=== PATIENT | male | born 1965 | race Caucasian/White ===

== ENCOUNTER 2023-11-30 17:39 | Outpatient (OUT) | payer OTHER, SELFPAY ==
--- NOTE | 2023-11-30 | XR_ITS ---
The [address] [address] Patient Name: KESHIA LIN MRN: [id number] date: 1965 Sex: M Assigned Patient Location: [facility] Current Patient Location: Accession/Order Number: [id number] Exam Date: 11/30/2023 18:00 Report Date: 12/01/2023 07:42 At the request of: DONALD ORTEGA Procedure: XR lumbar spine min 4V EXAMINATION: XR lumbar spine min 4V HISTORY: M54.50 COMPARISON: No relevant comparison available. FINDINGS: BONES: Normal. No significant spondylosis, scoliosis, fracture, or visible bony lesion. DISC SPACES: Normal. No significant disc height narrowing, subluxation, or endplate abnormality. PARASPINOUS: Negative. No paraspinous abnormality is seen. OTHER: Negative. XR/XR lumbar spine min 4V IMPRESSION: No acute radiographic abnormality Electronically authenticated by: TREMAYNE ADLER Date: 12/01/2023 07:42
== END 2023-11-30 17:40 | disposition home or self-care (01) ==
LOC: RAD 17:44
PROVIDERS: PCP Nurse Practitioner Family; Visit Provider Nurse Practitioner Family
DX: M54.50 Low back pain, unspecified (principal)
CPT/HCPCS: 72110

== ENCOUNTER 2024-10-14 18:56 | Emergency (ER) | payer OTHER, SELFPAY ==
--- OUTSIDE RECORDS SUMMARY | 2024-10-14 19:07 | XMS_ITS | CCD ---
Author Organization [facility] Care Team Providers Care Marriage And Family Therapist Name Role Phone DR BHAVESH PEREZ Admitting Unavailable SHERYL Motley, DR OSPINA Attending Unavailable DR STEPHEN BATISTA Primary Care Unavailable DR BHAVESH PEREZ Consulting Unavailable HODA, NEVILLE Consulting Unavailable Stephen Batista DO Primary Care Provider [phone] Temitope Cobb APRN Attending Provider Medications Current Medications Medication Drug Class(es) Dates Sig (Normalized) Sig (Original) metFORMIN hydrochloride 500 mg oral tablet (1 source) Biguanide Start: 10-14-2024 take 1 tablet by mouth once daily Metformin 500 mg tablet Active 500 MG PO Daily October 14, 2024 12:00am Complies with drug therapy Semaglutide (1 source) Start: 10-14-2024 Semaglutide (Ozempic) 0.25 mg or 0.5 mg (2 mg/3 mL) pen injector Active MG SUBCUT October 14, 2024 12:00am Complies with drug therapy Completed/Discontinued Medications Medication Drug Class(es) Dates Sig (Normalized) Sig (Original) aspirin 325 mg oral tablet (1 source) Platelet Aggregation Inhibitor, Nonsteroidal Anti-inflammatory Drug Start: 12-23-2017 End: 10-14-2024 take 1 tablet by mouth once daily Aspirin 325 mg Tablet Discontinued 325 MG PO Daily December 23, 2017 1:00am October 14, 2024 6:12pm ibuprofen 800 mg oral tablet (1 source) Nonsteroidal Anti-inflammatory Drug Start: 12-23-2017 End: 10-14-2024 take 1 tablet by mouth three times daily as needed for pain Ibuprofen 800 mg Tablet Discontinued 800 MG PO Three times daily as needed for Pain December 23, 2017 1:00am October 14, 2024 6:12pm nabumetone 500 mg oral tablet (1 source) Nonsteroidal Anti-inflammatory Drug Start: 10-14-2024 End: 10-14-2024 Nabumetone 500 mg tablet Discontinued MG PO October 14, 2024 12:00am October 14, 2024 6:19pm Problems Problem Classification Problem Date Documented Da te Episodic/Chronic Diabetes mellitus without complication (1 source) Type 2 diabetes mellitus without complications; Translations: [TYPE 2 DM WITHOUT COMPLICATIONS] Onset: 05-27-2022 Chronic Gastrointestinal hemorrhage (1 source) Hematochezia; Translations: [Melena] 01-28-2023 Episodic Comment on above: Problem List clean-u p per request of Phys. EHR Cmte Open wounds of extremities (2 sources) Dog bite of hand; Translations: [Open bite of unspecified hand, initial encounter] 10-14-2024 Episodic Other aftercare (1 source) custodial (current) use of oral hypoglycemic drugs; Translations: [ON SITE SERVICES SPECIALIST USE ORAL HYPOGLYCEMIC DX] Onset: 05-27-2022 Episodic Other aftercare (1 source) custodial (current) use of aspirin; Translations: [[facility] CURRENT USE OF ASPIRIN] Onset: 05-27-2022 Episodic Other gastrointestinal disorders (1 source) Constipation; Translations: [Constipation, unspecified] 01-28-2023 Episodic Comment on above: Problem List clean-u p per request of Phys. EHR Cmte Other lower respiratory disease (4 sources) Shortness of breath; Translations: [SHORTNESS OF BREATH] Onset: 05-23-2022 Episodic Other screening for suspected conditions (not mental disorders or infectious disease) (1 source) Computed tomography result abnormal; Translations: [Abnormal findings on diagnostic imaging of other specified body structures] 01-28-2023 Chronic Comment on above: Problem List clean-u p per request of Phys. EHR Cmte Screening and history of mental health and substance abuse codes (1 source) Personal history of nicotine dependence; Translations: [PERSONAL HISTORY OF NICOTINE DEPEND] Onset: 05-27-2022 Episodic Viral infection (1 source) COVID-19; Translations: [COVID-19] Onset: 05-27-2022 Results Test Name Value Interpretation Reference Range Facil ity CTA CHEST WO W CONon 023 CTA CHEST WO W CON EXAMINATION: CTA TAURUS ST WO W CON HISTORY: SHORTNESS OF BREATH COMPARISON: CT abdomen 12/10/2017 TECHNIQUE: Thin section transaxial slices were acquired through the chest with intravenous contrast per PE protocol. Coronal and sagittal reconstructed images were reviewed. FINDINGS: PULMONARY ARTERIES: There is good opacification of the pulmonary vasculature. No pulmonary arterial filling defects are present. LUNGS/AIRWAYS: There are multifocal patchy areas of consolidation in right lower and middle lung. Additionally, there are groundglass nodular densities along the bronchovascular distribution in bilateral lower lobes, right more than left. The central airways are patent. PLEURAL CAVITY: No pleural effusion or pneumothorax. HEART/PERICARDIUM: The heart is normal in size. No pericardial effusion. MEDIASTINAL/HILAR LYMPH NODES: No pathologically enlarged lymph nodes. CHEST WALL/AXILLA/LOWER NECK: Normal. VISUALIZED UPPER ABDOMEN: No acute abnormality. There is a 4 cm fluid attenuation lesion in the right liver, unchanged since 2018, likely a cyst BONES: No acute process.. There are marked degenerative changes in the lower thoracic spine with large anterior bridging osteophytes and anterior wedging. IMPRESSION: 1. No evidence of pulmonary embolism. 2. Multifocal patchy areas of consolidation in right middle, lower lobes and additional groundglass nodular densities along the bronchovascular distribution in bilateral lower lobes, likely represent pneumonia. Electronically authenticated by: NEVILLE UNLU Date: 2022-05-23 22:03 Normal [facility] CBC AUTO DIFFon 05-23-2022 BASO # 0.0 103/ul Normal 0.0-0.1 [facility] Comment on above: Performed By: #### C BC #### [facility] [address] [address] [address] Hermes Rios Basophils/100 WBC (Bld) 0.3 % Normal 0.2-2.0 [facility] Comment on above: Performed By: #### C BC #### [facility] [address] [address] [address] Hermes Rios EO # 0.1 103/ul Normal 0.0-0.7 [facility] Comment on above: Performed By: #### C BC #### [facility] [address] [address] [address] Hermes Rios Eosinophils/100 WBC (Bld) 1.7 % Normal 0.9-7.0 [facility] Comment on above: Performed By: #### C BC #### [facility] [address] [place] [address] Dr. Hermes Rios Erythrocyte distribution width (RBC) [Ratio] 12.1 % Normal 11.0-15.0 [facility] Comment on above: Performed By: #### C BC #### [facility] [address] [place] [address] Dr. Hermes Rios Hematocrit (Bld) [Volume fraction] 42.3 % Normal 42.0-54.0 [facility] Comment on above: Performed By: #### C BC #### [facility] [address] [place] [address] Dr. Hermes Rios Hemoglobin (Bld) [Mass/Vol] 14.4 g/dL Normal 14.0-18.0 [facility] Comment on above: Performed By: #### C BC #### [facility] [address] [place] [address] Dr. Hermes Rios IG # 0.02 10e3/ul Normal 0.00-0.03 [facility] Comment on above: Performed By: #### C BC #### [facility] [address] [place] [address] Dr. Hermes Rios IG % 0.3 % Normal 0.0-0.5 [facility] Comment on above: Performed By: #### C BC #### [facility] [address] [place] [address] Dr. Hermes Rios LYMPH # 1.2 103/ul Normal 1.2-3.8 [facility] Comment on above: Performed By: #### C BC #### [facility] [address] [place] [address] Dr. Hermes Rios Lymphocytes/100 WBC (Bld) 15.6 % Critically low 20.5-60.0 [facility] Comment on above: Performed By: #### C BC #### [facility] [address] [place] [address] Dr. Hermes Rios MANUAL DIFF REQ NO Normal [facility] Comment on above: Performed By: #### C BC #### [facility] [address] [place] [address] Dr. Hermes Rios MCH (RBC) [Entitic mass] 29.8 pg Normal 25.9-34.0 [facility] Comment on above: Performed By: #### C BC #### [facility] [address] [place] [address] Dr. Hermes Rios MCHC (RBC) [Mass/Vol] 34.0 g/dL Normal 29.9-35.2 [facility] Comment on above: Performed By: #### C BC #### [facility] [address] [address] [address] Hermes Rios MCV (RBC) [Entitic vol] 87.4 fL Normal 80.0-94.0 [facility] Comment on above: Performed By: #### C BC #### [facility] [address] [place] [address] Dr. Hermes Rios MONO # 0.5 103/ul Normal 0.3-0.8 [facility] Comment on above: Performed By: #### C BC #### [facility] [address] [place] [address] Dr. Hermes Rios Monocytes/100 WBC (Bld) 6.6 % Normal 1.7-12.0 [facility] Comment on above: Performed By: #### C BC #### [facility] [address] [place] [address] Dr. Hermes Rios NEUT # 5.9 103/ul Normal 1.4-6.5 [facility] Comment on above: Performed By: #### C BC #### [facility] [address] [place] [address] Dr. Hermes Rios Neutrophils/100 WBC (Bld) 75.5 % Critically high 43.0-75.0 [facility] Comment on above: Performed By: #### C BC #### [facility] [address] [place] [address] Dr. Hermes Rios Platelet mean volume (Bld) [Entitic vol] 9.0 fL Critically low 9.5-13.5 [facility] Comment on above: Performed By: #### C BC #### [facility] [address] [place] [address] Dr. Hermes Rios PLT 249 103/ul Normal 150-450 [facility] Comment on above: Performed By: #### C BC #### [facility] [address] [place] [address] Dr. Hermes Rios RBC 4.84 106/ul Normal 4.70-6.10 [facility] Comment on above: Performed By: #### C BC #### [facility] [address] [place] [address] Dr. Hermes Rios WBC 7.9 103/ul Normal 4.0-11.0 [facility] Comment on above: Performed By: #### C BC #### [facility] [address] [place] [address] Dr. Hermes Rios PROF CHEM 8 (BAS METB)on Anion gap [Moles/Vol] 12.3 mmol/L Normal [facility] Comment on above: Performed By: #### B MP #### [facility] [address] [place] [address] Dr. Hermes Rios Calcium [Mass/Vol] 8.8 mg/dL Normal 8.5-10.1 [facility] Comment on above: Performed By: #### B MP #### [facility] [address] [place] [address] Dr. Hermes Rios Chloride [Moles/Vol] 98 mmol/L Normal 98-107 [facility] Comment on above: Performed By: #### B MP #### [facility] [address] [place] [address] Dr. Hermes Rios CO2 [Moles/Vol] 29.4 mmol/L Normal 21.0-32.0 [facility] Comment on above: Performed By: #### B MP #### [facility] [address] [place] [address] Dr. Hermes Rios Creatinine [Mass/Vol] 0.89 mg/dL Normal 0.70-1.30 [facility] Comment on above: Performed By: #### B MP #### [facility] [address] [place] [address] Dr. Hermes Rios EGFR-AF BURUNDIAN >60 Normal >=60 [facility] Comment on above: Performed By: #### B MP #### [facility] [address] [address] [address] Hermes Rios EGFR-NON AF BURUNDIAN >60 Normal >=60 [facility] Comment on above: Performed By: #### B MP #### [facility] [address] [address] [address] Hermes Rios Glucose [Mass/Vol] 202 mg/dL Critically high 74-106 [facility] Comment on above: Performed By: #### B MP #### [facility] [address] [address] [address] Hermes Rios Potassium [Moles/Vol] 3.7 mmol/L Normal 3.5-5.1 [facility] Comment on above: Performed By: #### B MP #### [facility] [address] [address] [address] Hermes Rios Sodium [Moles/Vol] 136 mmol/L Normal 136-145 [facility] Comment on above: Performed By: #### B MP #### [facility] [address] [address] [address] Hermes Rios Urea nitrogen [Mass/Vol] 22.0 mg/dL Critically high 7.0-18.0 [facility] Comment on above: Performed By: #### B MP #### [facility] [address] [address] [address] Hermes Rios Urea nitrogen/Creatinin e [Mass ratio] 24.7 mg/mg Normal [facility] Comment on above: Performed By: #### B MP #### [facility] [address] [address] [address] Hermes Rios Provider Orderson 06-27-2019 Provider Orders [id number] [facility] Coding Summaryon 06-24-2019 Coding Summary CODING DATE: 06/24/2019 [facility] STATUS: Home PAYOR: Commercial Insurance APC DESCRIPTION 5522 Level 2 Imaging without Contrast ADMIT DX: REASON FOR VISIT DX: I86.8 Varicose veins of other specified sites M79.605 Pain in left leg FINAL DX: PRINCIPAL: I86.8 Varicose veins of other specified sites SECONDARY: M79.605 Pain in left leg I80.02 Phlebitis and thrombophlebitis of superficial vessels of left lower extremity PYMT PROC APC STAT DESCRIPTION DOCTOR NAME DATE NOTE: The code number assigned matches the documented diagnosis and / or procedure in the patient's chart. However, the narrative phrase printed from the coding software may appear abbreviated, or result in slightly different terminology. Coded By: Rayna Reed Date Saved: 06/24/2019 09:00 am [facility] US LE Venous Duplex Lefton 0 06-23-2019 US LE Venous Duplex Left EXAMINATION: US LE VENOUS DUPLEX LEFT HISTORY: Pain in left leg M79.605. Varicose veins of other specified sites I86.8. Left leg pain. COMPARISON: None. TECHNIQUE: Sonographic evaluation of the left lower extremity venous system is performed with yanez scale and color Doppler as well as spectral analysis. Venous duplex examination performed using B-mode, color flow, and spectral analysis. FINDINGS: Superficial thrombophlebitis with an acute appearance involves the left great saphenous vein in the mid thigh, distal thigh, and within a large tributary branch extending into the distal thigh and calf. There is no extension into the deep system visible. IMPRESSION: 1. Acute-appearing superficial thrombophlebitis involving the left great saphenous vein from the mid thigh into the calf as well as adjacent thigh and calf tributary branches, without extension into the deep system. 2. There is no evidence of deep vein thrombus. Final Dictated by: Nelson Canas Dictated DT/TM: 06/23/19 11:10 Signed (Electronic Signature): Nelson Canas 06/23/19 11:28 a Technologist: GABI [facility] Vital Signs Date Time Vital Sign Value Performing Clinician Grettai abdulaziz 10-14-2024 18:19-0400 Body height 180.34 cm Stephen Batista Zyrra Work Phone: [facility] 10-14-2024 18:19-0400 Body mass index (BMI) [Ratio] 38.6 kg/m2 Stephen Batista DO Work Phone: [facility] 10-14-2024 18:19-0400 Body temperature 97.1 [degF] Stephen Gudinoe DO Work Phone: [facility] 10-14-2024 18:19-0400 Body weight 125.75 kg Stephen Batista DO Work Phone: [facility] 10-14-2024 18:19-0400 Diastolic blood pressure 82 mm[Hg] Stephen Gudinoe DO Work Phone: [facility] 10-14-2024 18:19-0400 Heart rate 67 /min Stephen Gudinoe DO Work Phone: [facility] 10-14-2024 18:19-0400 Respiratory rate 18 /min Stephen Batista DO Work Phone: [facility] 10-14-2024 18:19-0400 SaO2% (BldA) [Mass fraction] 99 % Stephen Batista DO Work Phone: [facility] 10-14-2024 18:19-0400 Systolic blood pressure 136 mm[Hg] Stephen Gudinoe DO Work Phone: [facility] Encounters Encounter Date Encounter Type Care Provider Facility Start: 10-14-2024 End: 10-14-2024 ambulatory Stephen Batista DO Work Phone: [facility] Work Phone: Start: 10-14-2024 End: 10-14-2024 Patient encounter procedure Temitope Wilson [employer] [facility] Work Phone: Start: 05-23-2022 End: 05-24-[address] BHAVESH SAUCEDO . Facility: Payers Date Payer Category Payer Unknown [id number] 1958 Private Health Insurance [id number] Social History Date Type Detail [facility] Work Phone: Sex Male (finding) [facility] Start: 1965 Sex Assigned At Male F [facility] Evaluation note Note Date & Type Note Facility Evaluation note Diagnosis Onset Date Resolution Dog bite of hand acute September 172024 6:12pm [facility] Work Phone: Reason for referral (narrative) Note Date & Type Note Facility Reason for referral (narrative) No reason for referral information available [facility] Work Phone: Summary Purpose Family History No Family History Records FoundNo Family History Records Found Advance Directives Advance Directive Response Recorded Date/ Time Advance Directives No December 18, 2017 5:41pm Chief Complaint and Reason for Visit Chief Complaint Admit Date Left hand dog bite October 14, 2024 6: 12pm Reason for Visit Admit Date Dog bite of hand October 14, 2024 6: 12pm Additional Source Comments (unrecognized sect ion and content) No Status Records FoundNo Status Records Found INFORMATION SOURCE (unrecogn ized section and content) DATE CREATED AUTHOR 07/02/2019 [facility] DATE CREATED AUTHOR AUTHOR'S ORGANIZ ATION 05/27/[address] [facility] Care Teams (unrecognized sec tion and content) Team Status: Active Member Role Status Dates Stephen Batista DO Primary Care Provider Active Team Status: Inactive Member Role Status Dates Stephen Batista DO Primary Care Provider Active St art: October 14, 2024 End: October 14, 2024 Temiotpe Cobb APRN Attending Provider Active S tart: October 14, 2024 End: October 14, 2024 Goals (unrecognized section and content) Goals may be documented in a n alternate section FOR RECORDS PERTAINING TO PATIENTS WHO ARE OR HAVE BEEN ENROLLED IN A CHEMICAL DEPENDENCY/SUBSTANCEABUSE PROGRAM, SOME INFORMATION MAY BE OMITTED. This clinical summary was aggregated from multiple sources. Caution should be exercised in using it in the provision of clinical care. This summary normalizes information from multiple sources, and as a consequence, information in this document may materially change the coding, format and clinical context of patient data. In addition, data may be omitted in some cases. CLINICAL DECISIONS SHOULD BE BASED ON THE PRIMARY CLINICAL RECORDS. [facility] [employer] [facility]. provides no warranty or guarantee of the accuracy or completeness of information in this document.
[2024-10-14 19:10] VITALS: BP 145/80; PULSE 71; TEMP 37.3; O2SAT 97; BMI 38.7
--- NOTE | 2024-10-14 19:46 | ED.ANIMALBI1 ---
HPI - Animal Bite General Chief Complaint: Animal Bite Stated Complaint: DOG BITE Time Seen by Provider: 10/14/24 19:19 Source: patient Mode of arrival: walk-in Limitations: no limitations History of Present Illness HPI narrative: 59-year-old male presents to the ED after sustaining a dog bite to the right ring finger [place]. He reports attempting to capture the dog, which was uncollared and of unknown vaccination status and not able to be observed. The bite resulted in a ~1 cm laceration. There is no active bleeding at presentation. Patient denies other injuries. He maintains full range of motion of the affected finger. Tetanus immunization is not up-to-date. No other complaints at this time. Related Data Home Medications ?Medication ?Instructions ?Recorded ?Confirmed metformin 500 mg tablet 500 mg PO DAILY 10/14/24 10/14/24 semaglutide 0.25 mg or 0.5 mg (2 0.5 mg subcut .weekly 10/14/24 10/14/24 mg/3 mL) subcutaneous pen injector (Ozempic) Allergies Allergy/AdvReac Type Severity Reaction Status Date / Time Penicillins AdvReac Unknown Unknown Verified 10/14/24 19:17 PFSH PFSH Social History Little interest or pleasure in doing things: not at all Feeling down, depressed, or hopeless: not at all Exam Narrative Exam Narrative: General: Alert, oriented, in no acute distress. Vitals: Stable (documented in chart). Cardiac: Regular rate and rhythm, no murmurs. Pulmonary: Lungs clear to auscultation bilaterally. Right Hand / Finger: 1 cm laceration on right ring finger at the dorsal aspect. No active bleeding. Wound edges clean. Full range of motion of all phalanges. No signs of infection (no erythema, purulent drainage, or swelling beyond wound). Capillary refill <2 seconds, distal pulses intact. Sensation preserved. Extremities: No other trauma noted. Neurologic: Strength, sensation, and coordination normal. Reflexes symmetric. Mental Status: Alert and oriented to person, place, and time. Normal mood and affect. Constitutional Vital Signs, click to edit/add: Last Vital Signs Temp 99.1 F 10/14/24 19:10 Pulse 71 10/14/24 19:10 Resp 16 10/14/24 19:10 BP 145/80 H 10/14/24 19:10 Pulse Ox 97 10/14/24 19:10 O2 Del Method Room Air 10/14/24 19:10 Course Vital Signs Vital signs: Vital Signs Temperature 99.1 F 10/14/24 19:10 Pulse Rate 71 10/14/24 19:10 Respiratory Rate 16 10/14/24 19:10 Blood Pressure 145/80 H 10/14/24 19:10 Pulse Oximetry 97 10/14/24 19:10 Oxygen Delivery Method Room Air 10/14/24 19:10 Temperature 99.1 F 10/14/24 19:10 Pulse Rate 71 10/14/24 19:10 Respiratory Rate 16 10/14/24 19:10 Blood Pressure 145/80 H 10/14/24 19:10 Pulse Oximetry 97 10/14/24 19:10 Oxygen Delivery Method Room Air 10/14/24 19:10 MDM - Animal Bite MDM Narrative Medical decision making narrative: 59-year-old male presents with a 1 cm dog bite to the right ring finger sustained while attempting to capture an uncollared dog of unknown vaccination status. Patient is hemodynamically stable, neurovascularly intact, and has full range of motion of the affected finger. The wound was thoroughly irrigated and dressed. Tetanus immunization was updated. He was prescribed doxycycline 100 mg orally twice daily for 10 days for infection prophylaxis. Given the inability to observe the dog and unknown rabies vaccination status, rabies post-exposure prophylaxis was indicated. Patient will initiate the vaccine series with the following schedule through [facility] [place]: Dose 1: 10/14/2024 (today) + rabies immune globulin Dose 2: 10/17/2024 Dose 3: 10/21/2024 Dose 4: 10/28/2024 Dose 5: 11/11/2024 Risks, benefits, and follow-up requirements were reviewed with the patient. He is clinically stable for discharge with wound care instructions, medication counseling, and scheduled follow-up for completion of the rabies vaccine series. . Discharge Plan Discharge Chief Complaint: Animal Bite Clinical Impression: Dog bite Qualifiers: Encounter type: initial encounter Qualified Code(s): W54.0XXA - Bitten by dog, initial encounter Finger wound, simple, open Qualifiers: Encounter type: initial encounter Qualified Code(s): S61.209A - Unspecified open wound of unspecified finger without damage to nail, initial encounter Patient Disposition: Home, Self-Care Time of Disposition Decision: 20:57 Condition: Good Prescriptions / Home Meds: No Action metformin 500 mg tablet 500 mg PO DAILY Ozempic 0.25 mg or 0.5 mg (2 mg/3 mL) pen injector 0.5 mg SUBCUT .weekly Print Language: Setswana Instructions: Diphtheria/Pertussis/Tetanus Vaccine (By injection), Rabies Vaccine (By injection), Rabies Immune Globulin (By injection) (HyperRAB S/D, Imogam..., Animal Bite (ED) Additional Instructions: Disposition / Discharge Instructions: Keep the wound clean and dry; change dressings as instructed. Watch for signs of infection: increasing redness, swelling, warmth, pus, or worsening pain. Complete the rabies vaccine series as scheduled at follow-up. Seek immediate medical attention for fever, spreading redness, numbness, or other concerning symptoms. Return to the ED if there is any new trauma or concern for infection at the bite site Rabies Vaccine Schedule Dose Day Date 1 0 10/14/2024 2 3 10/17/2024 3 7 10/21/2024 4 14 10/28/2024 5 28 11/11/2024 Referrals: DONALD ORTEGA [Primary Care Provider, Unknown] - 1 week Discharge Date/Time: 10/14/24 21:32
[2024-10-14] MEDS: DIPHTH,PERTUSS(ACELL),TET VAC 0.5 ML SYRINGE IM (20:31)
[2024-10-14] MEDS: DOXYCYCLINE MONOHYDRATE 100 MG CAPSULE PO (20:32)
[2024-10-14] MEDS: RABIES VACCINE/PF 1 ML VIAL IM (20:33)
[2024-10-14] MEDS: RABIES IMMUNE GLOBULIN/PF 300 UNIT/2 ML VIAL 2520.16 UNIT INJ (20:37)
[2024-10-14] MEDS: BACITRACIN 0.9 GM PACKET 1 PACKET TOPICAL (21:31)
== END 2024-10-14 21:32 | disposition home or self-care (01) ==
PROVIDERS: Emergency Provider Internal Medicine; PCP Nurse Practitioner Family
DX: S61.214A Laceration without foreign body of right ring finger without damage to nail, initial encounter (principal); W54.0XXA Bitten by dog, initial encounter; Z23 Encounter for immunization; Z20.3 Contact with and (suspected) exposure to rabies; Z29.14 Encounter for prophylactic rabies immune globulin
CPT/HCPCS: 90377; 90471; 90472; 90675; 90715; 99283

== ENCOUNTER 2024-10-31 15:27 | Outpatient (RCR) | payer OTHER, SELFPAY ==
[2024-10-17 09:56] VITALS: BP 133/91; PULSE 75; TEMP 36.5
[2024-10-17] MEDS: RABIES VACCINE/PF 1 ML VIAL IM (10:04)
[2024-10-21] MEDS: RABIES VACCINE/PF 1 ML VIAL IM (15:27)
[2024-10-31] MEDS: RABIES VACCINE/PF 1 ML VIAL IM (15:41)
== END 2024-11-15 23:59 | disposition home or self-care (01) ==
LOC: INF 15:27
PROVIDERS: PCP Nurse Practitioner Family; Visit Provider Internal Medicine
DX: Z20.3 Contact with and (suspected) exposure to rabies (principal); Z23 Encounter for immunization; S61.254D Open bite of right ring finger without damage to nail, subsequent encounter; W54.0XXD Bitten by dog, subsequent encounter
CPT/HCPCS: 90471; 90675